=== PATIENT | female | born 1995 | race Caucasian/White ===

== ENCOUNTER 2021-01-09 09:01 | Outpatient (REF) | payer MEDICAID, SELFPAY ==
--- NOTE | 2021-01-09 09:00 | EMG_ITS ---
Bilateral median and ulnar motor and sensory studies were performed. Bilateral radial sensory studies were performed and paraspinal muscles were tested. IMPRESSION: Mild right median neuropathy across carpal tunnel, the left one was within normal range. MD SASHA Harper/ERICA / [id number]
== END 2021-01-09 09:02 | disposition home or self-care (01) ==
LOC: HO.NEURO 09:01
PROVIDERS: Visit Provider Internal Medicine
DX: G56.03 Carpal tunnel syndrome, bilateral upper limbs (principal)
CPT/HCPCS: 95886; 95911